=== PATIENT | male | born 1985 | race Two or more races ===

== ENCOUNTER 2019-08-16 11:44 | Day surgery (SDC) | payer BC ==
[~2019-08-16] VITALS: Ht 180.3 cm; Wt 79.3 kg
[~2019-08-16 11:44] MED LIST: NONE PER PT
[2019-08-16 12:02] VITALS: BP 130/81
[2019-08-16] MEDS ORDERED: LACTATED RINGERS 1,000 ML IV SCH (12:08)
[2019-08-16] MEDS ORDERED: FENTANYL PF 100 MCG/2ML ONE (12:50)
[2019-08-16] MEDS ORDERED: MIDAZOLAM 1 MG/ML, 2ML ONE (12:50)
[2019-08-16] MEDS ORDERED: BUPIVACAINE/PF 0.25% ONE (13:01)
[2019-08-16] MEDS ORDERED: BUPIVACAINE/PF 0.25% INFIL ONE (13:23)
[2019-08-16] MEDS ORDERED: CEFAZOLIN 1,000 MG ONE (13:29)
[2019-08-16] MEDS ORDERED: ONDANSETRON 2MG/ML, 2ML ONE (13:29)
[2019-08-16] MEDS ORDERED: PROPOFOL 10 MG/ML, 20ML ONE (13:29)
[2019-08-16] MEDS ORDERED: DEXAMETHASONE 4 MG/ML, 1ML ONE (13:29)
[2019-08-16] MEDS ORDERED: OXYcodone 5 MG/5 ML ORAL.SOL UDC PO PRN (13:30)
[2019-08-16] MEDS ORDERED: MIDAZOLAM 1 MG/ML, 2ML IV PRN (13:30)
[2019-08-16] MEDS ORDERED: hydrALAzine 20 MG/ML, 1ML IV PRN (13:30)
[2019-08-16] MEDS ORDERED: ACETAMINOPHEN 325 MG TABLET PO PRN (13:30)
[2019-08-16] MEDS ORDERED: ALBUTEROL/IPRATROPIUM 2.5MG/0.5MG, 3 ML NPPB PRN (13:30)
[2019-08-16] MEDS ORDERED: HYDROmorphone 2 MG/ML, 1ML IVPush PRN (13:30)
[2019-08-16] MEDS ORDERED: PROMETHAZINE 25 MG/ML, 1ML IV PRN (13:30)
[2019-08-16] MEDS ORDERED: FENTANYL PF 100 MCG/2ML IV PRN (13:30)
[2019-08-16] MEDS ORDERED: METOPROLOL 1 MG/ML, 5ML IV PRN (13:30)
[2019-08-16] MEDS ORDERED: MEPERIDINE/PF 25MG/ML,1ML IVPush PRN (13:30)
[2019-08-16] MEDS ORDERED: OXYcodone/APAP 5/325MG TABLET PO PRN (14:00)
[2019-08-16] MEDS ORDERED: morphine SULFATE 10 MG/ML, 1ML IVPush PRN (14:00)
== END 2019-08-16 15:15 | disposition home or self-care (01) ==
LOC: OR 11:44
PROVIDERS: ATTEND Surgery Surgery of the Hand
DX: S62.316A Displaced fracture of base of fifth metacarpal bone, right hand, initial encounter for closed fracture (principal); S63.054A Dislocation of other carpometacarpal joint of right hand, initial encounter; X83.8XXA Intentional self-harm by other specified means, initial encounter; Y93.89 Activity, other specified; Y92.89 Other specified places as the place of occurrence of the external cause; Y99.8 Other external cause status
CPT/HCPCS: 26608; 73130; C1713; J0690; J1100; J2250; J2405; J2704; J3010; J3490; J7120; 76000